=== PATIENT | male | born 1965 | race Caucasian/White ===

== ENCOUNTER 2021-04-27 11:12 | Inpatient (IN) ==
[2021-04-27] MEDS ORDERED: Dexamethasone IV 4 MG/ML VIAL 1 ml VIAL IV SLOW PU ONE (11:41)
[2021-04-27 11:52] LABS: Hematocrit 45 % (42-52); Hemoglobin 15.3 g/dL (14.0-18.0); Mean Corpuscular HGB Conc 34 g/dL (31-36); Mean Corpuscular Hemoglobin 32 pg (27-31); Mean Corpuscular Volume 96 fL (80-94); Mean Platelet Volume 8.7 fL (7.4-10.4); Platelet Count 133 10^3/uL (150-450); Red Blood Count 4.72 10^6 /uL (4.18-5.48); Red Cell Distribution Width 14 % (10-15); White Blood Count 5.7 10^3/uL (3.5-10.8)
[2021-04-27 11:57] LABS: ABS Lymphocytes 0.5 10^3/ul (1.0-4.8); ABS Monocytes 0.6 10^3/ul (0-0.8); ABS Neutrophils 4.7 10^3/ul (1.5-7.7); Lymphocyte % 8.3 %; Nucleated Red Blood Cells % 0.1
[2021-04-27 12:02] LABS: Activated Partial Thrombo Time 28.2 seconds (26.0-38.0); INR 1.07 (0.86-1.15)
[2021-04-27 12:11] LABS: ALT 34 U/L (7-52); AST 49 U/L (13-39); Albumin 3.5 g/dL (3.2-5.2); Albumin/Globulin Ratio 1.1 (1-3); Alkaline Phosphatase 87 U/L (35-149); Anion Gap 17 mmol/L (2-11); Blood Urea Nitrogen 39 mg/dL (6-24); CO2 Carbon Dioxide 15 mmol/L (22-32); Calcium 8.6 mg/dL (8.6-10.3); Chloride 104 mmol/L (101-111); Globulin 3.1 g/dL (2-4); Glucose 445 mg/dL (70-100); Potassium 4.5 mmol/L (3.5-5.0); Sodium 136 mmol/L (135-145); Total Protein 6.6 g/dL (6.4-8.9)
[2021-04-27] MEDS ORDERED: Lactated Ringers 1000 ml BAG 1,000 ML IV ONE (12:12)
[2021-04-27 12:17] LABS: Troponin I 0.03 ng/mL (<0.03)
[2021-04-27 12:25] LABS: LDH 602 U/L (140-271)
[2021-04-27 12:39] LABS: Venous Bicarbonate HCO3 15.4 mmol/L (24-28)
[2021-04-27 12:45] LABS: Ferritin 788.6 ng/mL (24-336)
[2021-04-27 12:49] LABS: Rapid COVID-19 Molecular Detected (Undetected)
[2021-04-27 12:58] LABS: Influenza A Molecular Negative (Negative); Influenza B Molecular Negative (Negative)
[2021-04-27] MEDS ORDERED: Enoxaparin 40 MG/0.4 ML SYR SUBCUT SCH (13:00)
[2021-04-27] MEDS ORDERED: Lorazepam PYXIS KEY PRN (13:03)
[2021-04-27] MEDS ORDERED: LORazepam 2 mg VIAL 1 ml IV PUSH PRN (13:03)
[2021-04-27] MEDS ORDERED: Baricitinib 2 MG TAB (NF) PO SCH (15:00)
[2021-04-27] MEDS ORDERED: Lactated Ringers 1000 ml BAG 1,000 ML IV SCH (15:00)
[2021-04-27 15:01] LABS: Magnesium 1.7 mg/dL (1.9-2.7); Phosphorus 3.2 mg/dL (2.5-5.0)
[2021-04-27 15:10] LABS: Glucose Confirmatory 449 mg/dL (70-100)
[2021-04-27] MEDS: Albuterol/Ipratropium NEB.SOL (2.5/0.5 MG) 3 ML NEB.SOLN INH SCH ×3 (15:12→23:22)
[2021-04-27] MEDS: cefTRIAXone 1 gm/50 mL NS BAG 1 GM/50 ML BAG IVPB SCH (15:43)
[2021-04-27] MEDS: Enoxaparin 60 MG/0.6 ML SYR SUBCUT SCH (15:47)
[2021-04-27 15:51] LABS: Urine Appearance Cloudy; Urine Bilirubin Negative (Negative); Urine Blood 1+ (Negative); Urine Color Yellow; Urine Glucose 3+(>=500 mg/dL) (Negative); Urine Ketones Negative (Negative); Urine Nitrite Negative (Negative); Urine Protein 2+(100 mg/dL) (Negative); Urine Specific Gravity 1.012 (1.002-1.030); Urine Urobilinogen Negative (Negative)
[2021-04-27] MEDS ORDERED: Acetaminophen IV 1 GM/100ML 100 ML IV PRN (16:03)
[2021-04-27 16:09] LABS: Urine Bacteria Absent (Absent); Urine Red Blood Cell Trace(0-2/hpf) (Absent); Urine White Blood Cell 3+(>20/hpf) (Absent)
[2021-04-27] MEDS ORDERED: Propofol 10 mg/ml 100 ML BTL 100 ML ONE (16:19)
[2021-04-27] MEDS ORDERED: Rocuronium 50 mg VIAL 10 mg/ml 5 ml VIAL (50 mg) ONE (16:19)
[2021-04-27] MEDS ORDERED: Succinylcholine 200 mg VIAL 20 mg/ml 10 ml VIAL (200 mg) ONE (16:19)
[2021-04-27] MEDS ORDERED: Etomidate 40 mg/20 ml (2 MG/ML) 20 ml VIAL (40 mg) ONE (16:34)
[2021-04-27] MEDS ORDERED: Propofol 10 MG/ML 20 ML BTL ONE (16:34)
[2021-04-27] MEDS: Propofol 10 mg/ml 100 ML BTL 100 ML IV SCH ×2 (16:40→20:22)
[2021-04-27] MEDS ORDERED: Remdesivir 100 mg Vial 200 MG in NS 0.9% 250 ml 210 ML IV ONE (17:00)
[2021-04-27] MEDS ORDERED: methylPREDNISolone SOD 40 mg/ml 1 ml VIAL IV SCH ×2 (17:00→18:04)
[2021-04-27] MEDS ORDERED: fentaNYL INFUSION 50 mcg/mL VL 2,500 MCG/50 ML VIAL IV SCH (17:00)
[2021-04-27 17:24] LABS: PCO2 Arterial 47 mmHg (35-45); PO2 Arterial 74 mmHg (80-100)
[2021-04-27 17:46] LABS: Troponin I 0.03 ng/mL (<0.03)
[2021-04-27] MEDS: Azithromycin 500 mg/250 ml NS 500 MG/250 ML BAG IVPB SCH (17:53)
[2021-04-27] MEDS: CMCS:Baricitinib 2 MG TAB (NF) PO SCH (18:02)
[2021-04-27] MEDS ORDERED: methylPREDNISolone SOD 40 mg/ml 1 ml VIAL IV ONE (18:05)
[2021-04-27 19:18] LABS: Calcium 7.8 mg/dL (8.6-10.3)
[2021-04-27 19:23] LABS: Potassium 5.6 mmol/L (3.5-5.0)
[2021-04-27] MEDS ORDERED: Magnesium Sulfate IV 3 GM in NS 0.9% 100 ml BAG 100 ML IVPB ONE (19:30)
[2021-04-27] MEDS: Sodium Bicarb 8.4% Vial 50 ML 150 MEQ in D5W 1000 ml BAG 850 ML IV SCH (21:42)
[2021-04-27 21:58] LABS: Blood Urea Nitrogen 46 mg/dL (6-24); CO2 Carbon Dioxide 17 mmol/L (22-32); Calcium 7.5 mg/dL (8.6-10.3); Chloride 106 mmol/L (101-111); Sodium 133 mmol/L (135-145)
[2021-04-27 22:01] LABS: Anion Gap 10 mmol/L (2-11); Glucose 571 mg/dL (70-100)
[2021-04-27] MEDS: Insulin Infusion 100unit/100mL 100 UNIT/100 ML BAG IV SCH (22:15)
[2021-04-27 23:47] LABS: Glucose Confirmatory 647 mg/dL (70-100)
[2021-04-27] MEDS ORDERED: KCL 20 MEQ/100 ML IVPREMIX 20 MEQ/100 ML BAG IV ONE (23:48)
[2021-04-28 00:47] LABS: Potassium, Whole Blood 7.4 mmol/L (3.4-4.5)
[2021-04-28] MEDS ORDERED: Patiromer POWDER 8.4 GM PAK PO ONE ×2 (01:07→02:00)
[2021-04-28] MEDS ORDERED: Sodium Bicarbonate 8.4% SYR 50 ml SYRINGE ONE (01:08)
[2021-04-28] MEDS: methylPREDNISolone SOD 40 mg/ml 1 ml VIAL IV SCH ×4 (01:24→23:35)
[2021-04-28] MEDS: Propofol 10 mg/ml 100 ML BTL 100 ML IV SCH ×2 (01:30→12:04)
[2021-04-28 01:49] LABS: Glucose Confirmatory 647 mg/dL (70-100)
[2021-04-28] MEDS ORDERED: Sodium Bicarbonate 8.4% SYR 50 ml SYRINGE IV ONE (02:00)
[2021-04-28] MEDS ORDERED: Calcium Gluconate 1 GM/10 ML VIAL (in Pyxis) IV ONE (02:00)
[2021-04-28] MEDS ORDERED: Norepinephrine IV 4 MG in NS 0.9% 250 ml 4,000 MCG/246 ML IV.FLUID IV SCH (02:00)
[2021-04-28 02:53] LABS: Blood Urea Nitrogen 51 mg/dL (6-24); CO2 Carbon Dioxide 25 mmol/L (22-32); Calcium 7.1 mg/dL (8.6-10.3); Chloride 102 mmol/L (101-111); Sodium 135 mmol/L (135-145)
[2021-04-28 03:03] LABS: Anion Gap 8 mmol/L (2-11); Glucose 663 mg/dL (70-100); Glucose Confirmatory 664 mg/dL (70-100)
[2021-04-28] MEDS: Albuterol/Ipratropium NEB.SOL (2.5/0.5 MG) 3 ML NEB.SOLN INH SCH ×6 (03:28→23:06)
[2021-04-28 03:38] LABS: PCO2 Arterial 52 mmHg (35-45); PO2 Arterial 73 mmHg (80-100)
[2021-04-28 03:46] LABS: Potassium, Whole Blood 5.2 mmol/L (3.4-4.5)
[2021-04-28 04:05] LABS: Glucose Confirmatory 665 mg/dL (70-100)
[2021-04-28] MEDS: Enoxaparin 60 MG/0.6 ML SYR SUBCUT SCH ×2 (04:21→16:18)
[2021-04-28 05:25] LABS: Magnesium 1.7 mg/dL (1.9-2.7)
[2021-04-28] MEDS: Sodium Bicarb 8.4% Vial 50 ML 150 MEQ in D5W 1000 ml BAG 850 ML IV SCH ×3 (05:52→20:21)
[2021-04-28] MEDS: Chlorhexidine MOUTHWASH 0.12% 15 ML UDC TOPICAL SCH ×6 (06:39→23:35)
[2021-04-28] MEDS: Insulin Infusion 100unit/100mL 100 UNIT/100 ML BAG IV SCH ×3 (06:40→18:45)
[2021-04-28 06:47] LABS: Hematocrit 39 % (42-52); Hemoglobin 13.1 g/dL (14.0-18.0); Mean Corpuscular HGB Conc 34 g/dL (31-36); Mean Corpuscular Hemoglobin 32 pg (27-31); Mean Corpuscular Volume 96 fL (80-94); Mean Platelet Volume 8.2 fL (7.4-10.4); Platelet Count 135 10^3/uL (150-450); Red Blood Count 4.07 10^6 /uL (4.18-5.48); Red Cell Distribution Width 13 % (10-15)
[2021-04-28 07:00] LABS: Potassium, Whole Blood 4.1 mmol/L (3.4-4.5)
[2021-04-28 07:06] LABS: INR 1.07 (0.86-1.15)
[2021-04-28 07:09] LABS: ALT 27 U/L (7-52); Albumin 2.9 g/dL (3.2-5.2); Alkaline Phosphatase 77 U/L (35-149); Blood Urea Nitrogen 53 mg/dL (6-24); CO2 Carbon Dioxide 25 mmol/L (22-32); Calcium 7.9 mg/dL (8.6-10.3); Chloride 103 mmol/L (101-111); Magnesium 2.7 mg/dL (1.9-2.7); Sodium 138 mmol/L (135-145); Total Protein 5.9 g/dL (6.4-8.9)
[2021-04-28 07:14] LABS: Glucose 552 mg/dL (70-100)
[2021-04-28 07:15] LABS: Anion Gap 10 mmol/L (2-11)
[2021-04-28] MEDS: Pantoprazole VIAL 40 MG VIAL IV SCH (07:56)
[2021-04-28] MEDS: Insulin GLARGINE 100 un/ml 10 ml VIAL SUBCUT SCH ×2 (07:56→20:21)
[2021-04-28] MEDS: CMCS:Baricitinib 2 MG TAB (NF) PO SCH (07:57)
[2021-04-28 08:46] LABS: Albumin 2.9 g/dL (3.2-5.2); CO2 Carbon Dioxide 24 mmol/L (22-32); Calcium 8.1 mg/dL (8.6-10.3); Chloride 102 mmol/L (101-111); Sodium 138 mmol/L (135-145)
[2021-04-28 08:52] LABS: ALT 27 U/L (7-52); Alkaline Phosphatase 79 U/L (35-149); Blood Urea Nitrogen 54 mg/dL (6-24); Total Protein 5.9 g/dL (6.4-8.9)
[2021-04-28 09:02] LABS: Glucose 511 mg/dL (70-100); Glucose Confirmatory 511 mg/dL (70-100)
[2021-04-28] MEDS ORDERED: Perflutren Lipid Microsphere 3 ML VIAL ONE (09:17)
[2021-04-28 09:49] LABS: Glucose Confirmatory 474 mg/dL (70-100)
[2021-04-28 10:11] LABS: Potassium Redraw 4.2 mmol/L (3.5-5.0)
[2021-04-28 10:21] LABS: Anion Gap 12 mmol/L (2-11)
[2021-04-28 11:25] LABS: PCO2 Arterial 57 mmHg (35-45); PO2 Arterial 100 mmHg (80-100)
[2021-04-28 11:37] LABS: Glucose Confirmatory 431 mg/dL (70-100)
[2021-04-28] MEDS ORDERED: fentaNYL INFUSION 50 mcg/mL VL 2,500 MCG/50 ML VIAL IV SCH ×2 (12:33→18:30)
[2021-04-28] MEDS ORDERED: Propofol 10 mg/ml 100 ML BTL 100 ML IV SCH ×2 (12:33→18:30)
[2021-04-28] MEDS: cefTRIAXone 1 gm/50 mL NS BAG 1 GM/50 ML BAG IVPB SCH (13:55)
[2021-04-28] MEDS: Azithromycin 500 mg/250 ml NS 500 MG/250 ML BAG IVPB SCH (15:25)
[2021-04-28 16:53] LABS: Calcium 6.6 mg/dL (8.6-10.3); Potassium 2.9 mmol/L (3.5-5.0)
[2021-04-28] MEDS ORDERED: fentaNYL 100 mcg/2 ml 50 MCG/ML VIAL ONE (18:03)
[2021-04-28] MEDS ORDERED: Lorazepam PYXIS KEY ONE (18:08)
[2021-04-28] MEDS ORDERED: Phenylephrine IV 10 MG/ML 1 ml VIAL ONE (18:08)
[2021-04-28] MEDS ORDERED: LORazepam 2 mg VIAL 1 ml ONE (18:09)
[2021-04-28] MEDS ORDERED: Norepinephrine 16MCG/ML IVPRE 4,000 MCG/250 ML BAG IV ONE (18:10)
[2021-04-28] MEDS ORDERED: fentaNYL 100 mcg/2 ml 50 MCG/ML VIAL IV SLOW PU ONE (18:14)
[2021-04-28] MEDS ORDERED: NS 0.9% 1000 ml BAG 1,000 ML IV ONE (18:15)
[2021-04-28] MEDS ORDERED: Lorazepam PYXIS KEY PRN (18:19)
[2021-04-28] MEDS ORDERED: LORazepam 2 mg VIAL 1 ml IV PUSH ONE (18:19)
[2021-04-28] MEDS ORDERED: Midazolam 2 mg/2 ml VIAL 1 mg/ml 2 ml VIAL (2 mg) IV SLOW PU ONE (18:28)
[2021-04-28] MEDS ORDERED: Midazolam 2 mg/2 ml VIAL 1 mg/ml 2 ml VIAL (2 mg) ONE (18:29)
[2021-04-28] MEDS ORDERED: Metoprolol Tartrate 5 mg VIAL 5 ml VIAL (1 mg/ml) ONE (18:33)
[2021-04-28] MEDS ORDERED: Magnesium Sulf 4 GM/100 ML IV 4,000 MG/100 ML BAG IVPB ONE (18:58)
[2021-04-28] MEDS ORDERED: KCL 20 MEQ/100 ML IVPREMIX 20 MEQ/100 ML BAG IV ONE (18:59)
[2021-04-28] MEDS ORDERED: PHENYLEPHRINE DRIP IVPREMIX 50 MG/250 ML BAG IV SCH ×2 (19:00→19:30)
[2021-04-28] MEDS ORDERED: Amiodarone IV 150 mg/3 ml VIAL IV PUSH ONE (19:53)
[2021-04-28] MEDS ORDERED: Amiodarone 360 MG IVPREMIX 360 MG/200 ML BAG IV SCH ×3 (19:55→20:25)
[2021-04-28] MEDS ORDERED: Amiodarone 150 mg IVPREMIX 150 MG/100 ML BAG IV ONE (20:15)
[2021-04-28] MEDS ORDERED: .Amiodarone 24HR ONLY IV Protocol Order Note IV ONE (20:15)
[2021-04-28] MEDS ORDERED: Remdesivir 100 mg Vial 100 MG in NS 0.9% 250 ml 230 ML IV SCH (21:00)
[2021-04-28 23:09] LABS: Albumin 2.6 g/dL (3.2-5.2); Calcium 7.4 mg/dL (8.6-10.3); Potassium 5.4 mmol/L (3.5-5.0); Total Bilirubin 0.6 mg/dL (0.2-1.0)
[2021-04-28 23:15] LABS: Albumin/Globulin Ratio 1.2 (1-3); Globulin 2.1 g/dL (2-4); Total Protein 4.7 g/dL (6.4-8.9); Troponin I 0.01 ng/mL (<0.03)
[2021-04-28] MEDS ORDERED: Dextrose 50% Syringe 50 ml 25 GM/50 ML SYRINGE IV PUSH PRN (23:17)
[2021-04-29] MEDS: Enoxaparin 60 MG/0.6 ML SYR SUBCUT SCH (01:57)
[2021-04-29] MEDS ORDERED: LORazepam 2 mg VIAL 1 ml IV PUSH ONE (02:06)
[2021-04-29] MEDS ORDERED: Lorazepam PYXIS KEY ONE ×2 (02:06→12:11)
[2021-04-29] MEDS ORDERED: Lorazepam PYXIS KEY PRN ×2 (02:06→12:10)
[2021-04-29] MEDS ORDERED: LORazepam 2 mg VIAL 1 ml ONE ×2 (02:07→12:13)
[2021-04-29] MEDS ORDERED: Vasopressin 100 UNITS in D5W 250 ml BAG 245 ML IV SCH (02:15)
[2021-04-29] MEDS ORDERED: fentaNYL 100 mcg/2 ml 50 MCG/ML VIAL IV ONE (02:17)
[2021-04-29] MEDS: Albuterol/Ipratropium NEB.SOL (2.5/0.5 MG) 3 ML NEB.SOLN INH SCH ×3 (02:22→11:07)
[2021-04-29] MEDS ORDERED: Amiodarone 360 MG IVPREMIX 360 MG/200 ML BAG IV SCH (02:25)
[2021-04-29 02:29] LABS: Blood Urea Nitrogen 70 mg/dL (6-24); CO2 Carbon Dioxide 26 mmol/L (22-32); Calcium 7.4 mg/dL (8.6-10.3); Chloride 99 mmol/L (101-111); Sodium 136 mmol/L (135-145)
[2021-04-29 02:45] LABS: Glucose 558 mg/dL (70-100)
[2021-04-29 02:55] LABS: Anion Gap 11 mmol/L (2-11)
[2021-04-29] MEDS: Chlorhexidine MOUTHWASH 0.12% 15 ML UDC TOPICAL SCH ×3 (03:26→12:25)
[2021-04-29 03:58] LABS: Potassium Redraw 5.1 mmol/L (3.5-5.0)
[2021-04-29 05:10] LABS: Hematocrit 41 % (42-52); Hemoglobin 13.6 g/dL (14.0-18.0); Mean Corpuscular HGB Conc 33 g/dL (31-36); Mean Corpuscular Hemoglobin 32 pg (27-31); Mean Corpuscular Volume 96 fL (80-94); Mean Platelet Volume 8.3 fL (7.4-10.4); Platelet Count 257 10^3/uL (150-450); Red Blood Count 4.24 10^6 /uL (4.18-5.48); Red Cell Distribution Width 14 % (10-15)
[2021-04-29 05:17] LABS: INR 1.07 (0.86-1.15)
[2021-04-29 05:26] LABS: Albumin 2.9 g/dL (3.2-5.2); Calcium 7.5 mg/dL (8.6-10.3); Globulin 2.9 g/dL (2-4); Total Bilirubin 0.5 mg/dL (0.2-1.0); Total Protein 5.8 g/dL (6.4-8.9)
[2021-04-29] MEDS: Insulin Infusion 100unit/100mL 100 UNIT/100 ML BAG IV ONE ×2 (05:30→09:07)
[2021-04-29] MEDS: PHENYLEPHRINE DRIP IVPREMIX 50 MG/250 ML BAG IV SCH ×2 (06:09→10:22)
[2021-04-29 06:10] LABS: Potassium 5.4 mmol/L (3.5-5.0)
[2021-04-29] MEDS ORDERED: SODIUM ZIRCONIUM CYCLOSILICATE 10 GM PACKET PO SCH (06:20)
[2021-04-29 07:27] LABS: Glucose Confirmatory 558 mg/dL (70-100)
[2021-04-29 07:38] LABS: Glucose Confirmatory 498 mg/dL (70-100)
[2021-04-29] MEDS: Pantoprazole VIAL 40 MG VIAL IV SCH (07:58)
[2021-04-29] MEDS: CMCS:Baricitinib 2 MG TAB (NF) PO SCH (07:58)
[2021-04-29] MEDS: methylPREDNISolone SOD 40 mg/ml 1 ml VIAL IV SCH (07:59)
[2021-04-29 08:33] LABS: Glucose Confirmatory 457 mg/dL (70-100)
[2021-04-29 08:49] LABS: Phosphorus 7.4 mg/dL (2.5-5.0)
[2021-04-29] MEDS ORDERED: Insulin GLARGINE 100 un/ml 10 ml VIAL SUBCUT SCH (09:00)
[2021-04-29] MEDS ORDERED: Morphine PCA ADULT 5 MG/ML 30 ML PCA SCH (11:00)
[2021-04-29] MEDS ORDERED: LORazepam 2 mg VIAL 1 ml IV PUSH PRN (12:10)
[2021-04-29] MEDS ORDERED: Morphine 10 MG/ML VIAL (1 ml) ONE (12:12)
[2021-04-29] MEDS ORDERED: Morphine 10 MG/ML VIAL (1 ml) IV ONE (12:12)
[2021-04-29 13:09] VITALS: BP 66/45
== END 2021-04-29 13:39 | disposition expired | DRG 720 ==
LOC: ED 11:12 → ICU 12:59
PROVIDERS: ADMIT Internal Medicine; ATTEND Internal Medicine